=== PATIENT | female | born 1935 | race Hispanic/Latino ===

== ENCOUNTER 2018-01-09 18:02 | Emergency (ER) | payer MEDICARE ==
[2018-01-09 18:03] VITALS: BMI 36.3
[2018-01-09 18:30] VITALS: RESP 16; TEMP 98.4
--- NOTE | 2018-01-09 19:02 | ED PDOC ---
Arrival/HPI - General Chief Complaint: Trauma Time Seen by Provider: 01/09/18 18:36 Historian: Patient - History of Present Illness Narrative History of Present Illness (Text): 01/09/18 18:58 82yo female with PMHx of hyperlipdemia, hypertension and hypothyroid who present with complaint of right knee/arm and forehead pain s/p trauma. She notes that her foot was stuck on a stool, while at home ambulating with her walker and fell, landing on top of her furniture at home at 1600. She notes that she hit her head on the furniture. She denies LOC, Focal weakness, dizziness, nausea, vomiting, visual changes, any other complaint. Past Medical History - Provider Review Nursing Documentation Reviewed: Yes - Tetanus Immunization Tetanus Immunization: Unknown - Cardiac Hx Cardiac Disorders: Yes Hx Hypertension: Yes - Pulmonary Hx Respiratory Disorders: Yes Hx Chronic Obstructive Pulmonary Disease (COPD): Yes - Neurological Hx Neurological Disorder: Yes Hx Alzheimer's Disease: No HX Cerebrovascular Accident: No Hx Dementia: No Hx Dizziness: Yes Hx Meningitis: No Hx Migraine: No Hx Parkinson's Disease: No Hx Seizures: No Hx Transient Ischemic Attacks (TIA): Yes - HEENT Hx HEENT Disorder: Yes Hx Cataracts: Yes - Renal Hx Renal Disorder: No - Endocrine/Metabolic Hx Endocrine Disorders: Yes Hx Hypothyroidism: Yes - Hematological/Oncological Hx Blood Disorders: No Hx Blood Transfusions: No Hx Blood Transfusion Reaction: No - Integumentary Hx Dermatological Disorder: No - Musculoskeletal/Rheumatological Hx Musculoskeletal Disorders: Yes Hx Arthritis: Yes Hx Falls: Yes - Gastrointestinal Hx Gastrointestinal Disorders: Yes Hx Diverticulitis: Yes - Genitourinary/Gynecological Hx Genitourinary Disorders: No Hx Reproductive Disorders: No - Psychiatric Hx Psychophysiologic Disorder: Yes Hx Depression: Yes Hx Substance Use: No - Surgical History Hx Appendectomy: Yes Hx Cholecystectomy: Yes Hx Hysterectomy: Yes - Anesthesia Hx Anesthesia: Yes - Suicidal Assessment Feels Threatened In Home Enviroment: No Family/Social History - Physician Review Nursing Documentation Reviewed: Yes Family/Social History: Unknown Family HX Smoking Status: Never Smoked Hx Alcohol Use: No Hx Substance Use: No Hx Substance Use Treatment: No Allergies/Home Meds Allergies/Adverse Reactions: Allergies ampicillin Allergy (Verified 01/09/18 18:21) RASH Home Medications: Home Meds Medication Instructions Recorded Confirmed Atenolol 50 mg PO DAILY 06/24/13 01/09/18 Clopidogrel [Plavix] 75 mg PO DAILY 06/24/13 01/09/18 Furosemide [Lasix] 40 mg PO DAILY 06/24/13 01/09/18 Levothyroxine [Synthroid] 0.05 mg PO DAILY 06/24/13 01/09/18 Arformoterol [Brovana] 15 mcg NEB BID 12/03/14 01/09/18 Simvastatin [Simvastatin] 40 mg PO DAILY 10/01/16 01/09/18 Tiotropium [Spiriva] 18 mcg INH DAILY 10/01/16 01/09/18 Escitalopram [Lexapro] 20 mg PO BID 01/09/18 01/09/18 Review of Systems - Physician Review All systems were reviewed & negative as marked: Yes - Review of Systems Constitutional: Normal Eyes: Normal ENT: Normal Respiratory: Normal Cardiovascular: Normal Gastrointestinal: Normal Genitourinary Female: Normal Musculoskeletal: Arthralgias (Right arm/knee pain) Skin: Normal Neurological: Headache. absent: Dizziness, Focal Weakness, Gait Changes, Speech Changes, Facial Droop Endocrine: Normal Hemo/Lymphatic: Normal Psychiatric: Normal Physical Exam Vital Signs Reviewed: Yes Vital Signs Temp Pulse Resp BP Pulse Ox 01/09/18 21:00 65 16 110/69 96 01/09/18 18:29 98.4 F 61 16 107/65 95 Temperature: Afebrile Blood Pressure: Normal Pulse: Regular Respiratory Rate: Normal Appearance: Positive for: Well-Appearing, Non-Toxic, Comfortable Pain Distress: None Mental Status: Positive for: Alert and Oriented X 3 - Systems Exam Head: Present: Atraumatic, Normocephalic Pupils: Present: PERRL Extroacular Muscles: Present: EOMI, Other (right eyebrow noted with approximately 3 x 3cm hematoma with overlaying ecchymosis. Tender to palpate) Conjunctiva: Present: Normal Mouth: Present: Moist Mucous Membranes Neck: Present: Normal Range of Motion Respiratory/Chest: Present: Clear to Auscultation, Good Air Exchange. No: Respiratory Distress, Accessory Muscle Use Cardiovascular: Present: Regular Rate and Rhythm, Normal S1, S2. No: Murmurs Abdomen: Present: Normal Bowel Sounds. No: Tenderness, Distention, Peritoneal Signs Back: Present: Normal Inspection Upper Extremity: Present: Normal ROM, Neurovascularly Intact, Other ( Superficial abrasions/excoriations ntoed on right mid dorsal forearm). No: Cyanosis, Edema, Tenderness, Swelling, Erythema (Ecchymosis of upper lateral right upper arm noted) Lower Extremity: Present: NORMAL PULSES, Normal ROM, Tenderness (Right mid anterior knee), Swelling (Right knee), Neurovascularly Intact, Other (Old healed surgical scar noted). No: Edema, Erythema Neurological: Present: GCS=15, CN II-XII Intact, Speech Normal Skin: Present: Warm, Dry, Normal Color. No: Rashes Psychiatric: Present: Alert, Oriented x 3, Normal Insight, Normal Concentration Medical Decision Making ED Course and Treatment: 01/09/18 21:[address] Negative [address] CT - Negative Right knee xray - Negative fracture Right arm xray - Negative Result was DW the pt and the family Her pain was controlled in ED with medication. She was ambulatory and neurologically intact. she will be DC home and advised to apply cold compress to swelling. Referred to her PMD. TRT ED for any new or worsening symptoms. - RAD Interpretation Radiology Orders: 01/09/18 18:42 HEAD W/O CONTRAST [CT] Stat 01/09/18 18:43 MAXILLOFACIAL W/O CONTRAST [CT] Stat KNEE W PATELLA RIGHT 3 VIEW [RAD] Stat 01/09/18 18:44 FOREARM RIGHT [RAD] Stat HUMERUS RIGHT [RAD] Stat - Medication Orders Current Medication Orders: Discontinued Medications Tramadol HCl (Ultram) 50 mg PO STAT STA Stop: 01/09/18 18:46 Last Admin: 01/09/18 18:51 Dose: 50 mg [facility] Pain Assessment Document 01/09/18 18:51 [email or web address] (Rec: 01/09/18 18:51 [email or web address] [facility] [id number] Pain Reassessment Is this a pain reassessment? No Sleep Is patient sleeping during reassessment? No Presence of Pain Presence of Pain Yes Pain Scale Used Pain Scale Used Numeric Location Pain Location Body Site Generalized Description Description Constant Intensity of Pain at present 8 Pain Behavior Facial Grimacing Aggravating Factors Changing Position Alleviating Factors/Management Position Change Techniques Alleviating Factors Medication Disposition/Present on Arrival - Present on Arrival Any Indicators Present on Arrival: No History of DVT/PE: No History of Uncontrolled Diabetes: No Urinary Catheter: No History of Decub. Ulcer: No History Surgical Site Infection Following: Orthopedic Procedures - Disposition Have Diagnosis and Disposition been Completed?: Yes Diagnosis: Contusion of orbit, Head injury, Facial contusion, Arm pain Disposition: HOME/ ROUTINE Disposition Time: 21:15 Patient Plan: Discharge Patient Problems: Current Active Problems Problem Status Onset Contusion of orbit Acute Facial contusion Acute Head injury Acute Condition: STABLE Discharge Instructions (ExitCare): Head Injury (ED), Facial Contusion (ED) Additional Instructions: Apply ice to area Follow up with your doctor Return to ED for any new or worsening symptoms Prescriptions: traMADol [Ultram] 50 mg PO Q6 #9 tab Referrals: Delmer Larson MD [Primary Care Provider] - Follow up with primary Forms: [employer] (Bulgarian)
--- NOTE | 2018-01-09 20:44 | CT ---
EXAM: CT Head Without Intravenous Contrast CLINICAL HISTORY: 82 years old, female; Injury or trauma; Fall; Initial encounter; Blunt trauma (contusions or hematomas); Consciousness not specified; Additional info: S/P trauma TECHNIQUE: Axial computed tomography images of the head/brain without intravenous contrast. All CT scans at this facility use one or more dose reduction techniques, viz.: automated exposure control; ma/kV adjustment per patient size (including targeted exams where dose is matched to indication; i.e. head); or iterative reconstruction technique. Coronal and sagittal reformatted images were created and reviewed. COMPARISON: No relevant prior studies available. FINDINGS: Brain: [id number] atrophy. No intracranial hemorrhage. No mass. Few scattered foci of decreased attenuation within periventricular/subcortical white matter. 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 No edema. Ventricles: No hydrocephalus. Bones/joints: No calvarial fracture. Vasculature: Atherosclerotic disease of intracranial arteries. Mastoid air cells: No mastoid effusion. IMPRESSION: 1. No intracranial hemorrhage. 2. Nonspecific white matter changes. 3. See facial bone CT report for additional details. 4. Incidental/non-acute findings are described above.
--- NOTE | 2018-01-09 20:47 | CT ---
EXAM: CT Maxillofacial Without Intravenous Contrast CLINICAL HISTORY: 82 years old, female; Injury or trauma; Fall; Initial encounter; Blunt trauma (contusions or hematomas); Orbit/periorbital; Bilateral; Additional info: Right eyebrow swelling/pain S/P trauma TECHNIQUE: Axial computed tomography images of the face without intravenous contrast. All CT scans at this facility use one or more dose reduction techniques, viz.: automated exposure control; ma/kV adjustment per patient size (including targeted exams where dose is matched to indication; i.e. head); or iterative reconstruction technique. Coronal and sagittal reformatted images were created and reviewed. COMPARISON: No relevant prior studies available. FINDINGS: Bones/joints: Degenerative changes of temporomandibular joints. Degenerative changes of cervical spine. No acute fracture. Soft tissues: RIGHT periorbital soft tissue swelling. Orbits: Unremarkable as visualized. Sinuses: Scattered minimal to mild mucosal thickening. No air-fluid levels. IMPRESSION: 1. No fracture. 2. Incidental/non-acute findings are described above.
[2018-01-09 21:01] VITALS: BP 110/69; PULSE 65; O2SAT 96
--- NOTE | 2018-01-10 08:26 | RAD ---
PROCEDURE: Radiographs of the Right Forearm HISTORY: arm pain s/p trauma COMPARISON: None available. TECHNIQUE: Frontal and lateral views obtained. FINDINGS: BONES: No fracture or destructive lesion. Diffuse osteopenia suggests an element of osteoporosis JOINT SPACES: Unremarkable. OTHER FINDINGS: None. IMPRESSION: No acute fracture or dislocation identified. Diffuse osteopenia suggests an element of osteoporosis.
--- NOTE | 2018-01-10 08:27 | RAD ---
PROCEDURE: Radiographs of the right humerus. HISTORY: arm pain s/p trauma COMPARISON: None. FINDINGS: BONES: No acute fracture or destructive bony lesion identified.Diffuse osteopenia suggests an element of osteoporosis. SOFT TISSUES: Normal. OTHER FINDINGS: None. IMPRESSION: No acute fracture or dislocation identified right humerus. Diffuse osteopenia appears mild suggesting an element of osteoporosis.
--- NOTE | 2018-01-10 08:29 | RAD ---
PROCEDURE: Right Knee Radiographs. HISTORY: knee pain s/p trauma COMPARISON: Portable right knee radiographs 04/07/2015. FINDINGS: BONES: Prior right total knee replacement hardware appears grossly unchanged in position in overall appearance. No acute fracture, subluxation or dislocation is appreciable. JOINTS: As per above. JOINT EFFUSION: No significant joint effusion appreciable. OTHER FINDINGS: Mildly prominent prepatellar soft tissue edema identified. Vascular calcifications seen in the popliteal fossa and posterior to the tibia and fibula. IMPRESSION: Stable appearance of right total knee replacement hardware compare to 04/07/2015 radiographs. No acute fracture or dislocation appreciable. Mildly prominent prepatellar soft tissue edema identified.
== END 2018-01-09 21:36 | disposition home or self-care (01) ==
LOC: ED 18:02
DX: S05.11XA Contusion of eyeball and orbital tissues, right eye, initial encounter (principal); W01.190A Fall on same level from slipping, tripping and stumbling with subsequent striking against furniture, initial encounter; Y92.009 Unspecified place in unspecified non-institutional (private) residence as the place of occurrence of the external cause; M79.601 Pain in right arm

== ENCOUNTER 2018-03-24 13:38 | Inpatient (IN) | payer MEDICARE ==
[2018-03-24 13:38] VITALS: BMI 36.3
[2018-03-24] MEDS ORDERED: Sodium Chloride 0.9% 500 ML IV STA (14:52)
[2018-03-24] MEDS ORDERED: Morphine 4 mg/ml ISec IVP STA (14:52)
--- NOTE | 2018-03-24 15:06 | ED PDOC ---
Arrival/HPI - General Chief Complaint: Abdominal Pain Time Seen by Provider: 03/24/18 14:52 Historian: Patient, Family - History of Present Illness Narrative History of Present Illness (Text): 03/24/18 14:55 Pt p/w + 2 days onset of intermittent epigastric pain, non-radiating; pt states pain is severe at 10/10; pt states she ate some rice/quinow 3 days ago, the next day pt started with severe epigastric pain, and yesterday pt had 3-4 episodes of explosive diarrhea; pt states her appetite is decr, and she is afraid to eat; pt state + nausea and 1 episode of vomiting; pt states no fever/ chills/sweats, no cp/sob/palpitations, no urinary changes; pt today felt very dizzy/lightheaded, NO LOC; pt + general headache, pt states no neck pain, no vision changes, no rashes, no fall/trauma/sick contact, no travel; pt is here for further eval; pt denied other complaints. PCP: Dr Larson GI - none surgery: Dr Pineda pt s/p vishy/fabio pt has not had colonoscopy/endoscopy Time/Duration: < week (3 days) Symptom Onset: Sudden Symptom Course: Intermittent Quality: Tightness, Stabbing Severity Level: 10, Severe Activities at Onset: Rest Context: Home Past Medical History - Provider Review Nursing Documentation Reviewed: Yes - Travel History Have you recently traveled outside [place] w/in the past 3 mons?: No - Past History Past History: No Previous - Infectious Disease Hx of Infectious Diseases: None - Tetanus Immunization Tetanus Immunization: Unknown - Reproductive Menopause: Yes Currently : No - Cardiac Hx Cardiac Disorders: Yes Hx Hypertension: Yes - Pulmonary Hx Respiratory Disorders: Yes Hx Chronic Obstructive Pulmonary Disease (COPD): Yes - Neurological Hx Neurological Disorder: Yes Hx Alzheimer's Disease: No HX Cerebrovascular Accident: No Hx Dementia: No Hx Dizziness: Yes Hx Meningitis: No Hx Migraine: No Hx Parkinson's Disease: No Hx Seizures: No Hx Transient Ischemic Attacks (TIA): Yes - HEENT Hx HEENT Disorder: Yes Hx Cataracts: Yes - Renal Hx Renal Disorder: No - Endocrine/Metabolic Hx Endocrine Disorders: Yes Hx Hypothyroidism: Yes - Hematological/Oncological Hx Blood Disorders: No Hx Blood Transfusions: No Hx Blood Transfusion Reaction: No - Integumentary Hx Dermatological Disorder: No - Musculoskeletal/Rheumatological Hx Musculoskeletal Disorders: Yes Hx Arthritis: Yes Hx Falls: Yes - Gastrointestinal Hx Gastrointestinal Disorders: Yes Hx Diverticulitis: Yes - Genitourinary/Gynecological Hx Genitourinary Disorders: No Hx Reproductive Disorders: No - Psychiatric Hx Psychophysiologic Disorder: Yes Hx Depression: Yes Hx Substance Use: No - Surgical History Hx Appendectomy: Yes Hx Cholecystectomy: Yes Hx Hysterectomy: Yes - Anesthesia Hx Anesthesia: Yes Hx Anesthesia Reactions: No Hx Malignant Hyperthermia: No - Suicidal Assessment Feels Threatened In Home Enviroment: No Family/Social History - Physician Review Nursing Documentation Reviewed: Yes Family/Social History: No Known Family HX Smoking Status: Never Smoked Hx Alcohol Use: No Hx Substance Use: No Hx Substance Use Treatment: No Allergies/Home Meds Allergies/Adverse Reactions: Allergies ampicillin Allergy (Verified 03/24/18 14:21) RASH Home Medications: Home Meds Medication Instructions Recorded Confirmed Atenolol 50 mg PO DAILY 06/24/13 03/24/18 Clopidogrel [Plavix] 75 mg PO DAILY 06/24/13 03/24/18 Furosemide [Lasix] 40 mg PO DAILY 06/24/13 03/24/18 Levothyroxine [Synthroid] 50 mcg PO DAILY 06/24/13 03/24/18 Arformoterol [Brovana] 15 mcg NEB BID 12/03/14 03/24/18 Simvastatin [Simvastatin] 40 mg PO DAILY 10/01/16 03/24/18 Tiotropium [Spiriva] 2.5 mcg INH DAILY 10/01/16 03/24/18 Escitalopram [Lexapro] 20 mg PO DAILY 01/09/18 03/24/18 Review of Systems - Review of Systems Constitutional: Fatigue Eyes: Normal ENT: Normal Respiratory: Normal. absent: SOB, Cough Cardiovascular: Normal. absent: Chest Pain Gastrointestinal: Abdominal Pain, Stool Changes, Diarrhea, Nausea, Vomiting Genitourinary Female: Normal Musculoskeletal: Normal Skin: Normal Neurological: Dizziness. absent: Headache Endocrine: Normal Hemo/Lymphatic: Normal Psychiatric: Normal Physical Exam Vital Signs Reviewed: Yes Vital Signs Temp Pulse Resp BP Pulse Ox 03/24/18 20:04 73 18 139/62 96 03/24/18 18:16 81 18 131/79 99 03/24/18 15:48 89 18 133/86 98 04/28/18 14:19 98.1 F 03/24/18 13:38 95 H 19 135/92 H 96 Temperature: Afebrile Blood Pressure: Normal Pulse: Regular Respiratory Rate: Normal Appearance: Positive for: Well-Appearing, Non-Toxic, Uncomfortable, Other ( resting in bed, alert/awake, GCS = 15, oriented x 3, uncomfortable, NAD, cooperative) Pain Distress: None Mental Status: Positive for: Alert and Oriented X 3 - Systems Exam Head: Present: Atraumatic, Normocephalic Pupils: Present: PERRL, Other (visual field intact b/l, no photophobia, sclera anicteric, no nystagmus) Extroacular Muscles: Present: EOMI Conjunctiva: Present: Normal Ears: Present: Normal Mouth: Present: Moist Mucous Membranes, Normal Teeth, Other (uvula/tongue are midline, no exudate/lesions) Pharnyx: Present: Normal, Other Nose (External): Present: Atraumatic Nose (Internal): Present: Normal Inspection Neck: Present: Normal Range of Motion, Trachea Midline, Other (intact ROM, no midline tenderness). No: Meningeal Signs, MIDLINE TENDERNESS, Paraspinal Tenderness Respiratory/Chest: Present: Clear to Auscultation, Good Air Exchange, Other ( CTA b/l, no w/r/r, no accessory muscle use noted, no tachypenia). No: Respiratory Distress, Accessory Muscle Use Cardiovascular: Present: Regular Rate and Rhythm, Normal S1, S2. No: Murmurs Abdomen: Present: Tenderness (mid abd tenderness, no hoover's sign, no mcburney' s point tenderness, no masses/rebound/guarding/rigidity), Normal Bowel Sounds, Other (well nourished/obese female). No: Peritoneal Signs, Rebound, Guarding, McBurney's Point Tender, Rovsing's Sign Present Back: Present: Normal Inspection. No: CVA Tenderness, Midline Tenderness, Paraspinal Tenderness Upper Extremity: Present: Normal Inspection, Normal ROM, NORMAL PULSES, Neurovascularly Intact, Capillary Refill < 2s Lower Extremity: Present: Normal Inspection, NORMAL PULSES, Normal ROM, Neurovascularly Intact, Capillary Refill < 2 s, Other (intact ROM) Neurological: Present: GCS=15, CN II-XII Intact, Speech Normal Skin: Present: Warm, Normal Color, Other (cap refill < 1sec, no ulcerations, no petechiae, no rashes). No: Dry, Rashes Psychiatric: Present: Alert, Oriented x 3 Medical Decision Making ED Course and Treatment: 03/24/18 15:14 Impression: abd pain, N/V/D i have consider all the differential diagnosis regarding pt's chief medical complaints/clinical findings, including but are not limited to: abd pain, n/v/d A/P: abd pain, n/v/d - labs - iv - ct - ua - supportive care - observe/reevaluation 03/24/18 15:57 pt is feeling improved, currently pain free and no more nausea pt is awaiting CT results 03/24/18 19:51 pt remained comfortable currently, no gross pain, no vomiting, no persistent nausea pt/family are made aware of pt's medical results agrees with admission Paging Surg resident and Dr Morris 03/24/18 19:54 I spoke to surg resident, made aware, will see patient 03/24/18 20:[address] Morris, made aware, agrees with admission Re-evaluation Time: 15:57 Reassessment Condition: Improved - Lab Interpretations Lab Results: 03/24/18 15:10 03/24/18 15:10 Lab Results 03/24/18 15:10: pO2 33, VBG pH 7.34, VBG pCO2 57.0, VBG HCO3 30.8 H, VBG Total CO2 32.5 H, VBG O2 Sat (Calc) 70.7 H, VBG Base Excess 3.5 H, VBG Potassium 3.9, Sodium 138.0, Chloride 104.0, Glucose 103, Lactate 0.9, FiO2 21.0, Venous Blood Potassium 3.9 03/24/18 15:10: Sodium 142, Chloride 102, Potassium 3.9, Carbon Dioxide 30, Anion Gap 14, BUN 16, Creatinine 0.7, Est GFR ( Amer) > 60, Est GFR (Non- Af Amer) > 60, Random Glucose 99, Calcium 9.4, Total Bilirubin 0.8, AST 26, ALT 20, Alkaline Phosphatase 55, Total Protein 6.8, Albumin 3.9, Globulin 2.9, Albumin/Globulin Ratio 1.4, Lipase 48 03/24/18 15:10: PT 11.7, INR 1.03, APTT 27.4 03/24/18 15:10: WBC 6.7 D, RBC 4.20, Hgb 12.5, Hct 38.5, MCV 91.7, MCH 29.8, MCHC 32.5, RDW 14.6 H, Plt Count 171, MPV 10.4, Gran % 68.7 H, Lymph % (Auto) 19.9 L, Donley % (Auto) 8.4 H, Eos % (Auto) 2.7, Baso % (Auto) 0.3, Gran # 4.60, Lymph # (Auto) 1.3, Donley # (Auto) 0.6, Eos # (Auto) 0.2, Baso # (Auto) 0.02 I have reviewed the lab results: Yes Interpretation: All labs normal - RAD Interpretation Narrative RAD Interpretations (Text): 03/24/18 19:36 CT Abd and Pelvis reviewed, shows: LIMITATIONS: Mild streak/motion artifact. LUNG BASES: No significant abnormality seen. ABDOMEN: LIVER: Hepatomegaly, with the liver measuring 23 cm in length on the coronal images. GALLBLADDER AND BILE DUCTS: Diffuse biliary ductal dilatation, involving the intrahepatic and extrahepatic bile ducts, with the common bile duct measuring up to 1.2 cm in diameter. Cholecystectomy clips. No radiopaque common bile duct stones are visualized. PANCREAS: Pancreatic duct is seen, however, does not appear abnormally dilated. No CT evidence of acute pancreatitis. SPLEEN: No acute abnormality of the spleen identified. ADRENALS: No acute abnormality of the adrenal glands identified. KIDNEYS AND URETERS: Low density lesions in the right kidney, most likely representing cysts. The largest of these measures 1.6 cm. STOMACH AND BOWEL: Mild small bowel dilatation. There are multiple mildly dilated distal small bowel loops in the pelvis. There may be a transition point in the distal small bowel, images 47-50 of series 601, where there is a change in caliber of the small bowel, followed by multiple normal caliber distal small bowel loops. There is mild wall thickening of the small bowel at the transition point. Findings could represent either an ileus or a partial distal small bowel obstruction, due to mild enteritis. Extensive colonic diverticulosis, without evidence of acute diverticulitis. Duodenal diverticulum noted. Otherwise, no significant abnormality of the bowel is identified. No acute abnormality of the stomach is identified. PELVIS: APPENDIX: Normal appendix is not seen, and there are postsurgical changes near the cecum, which may be from prior appendectomy. BLADDER: Mild bladder diverticulosis. Findings could be secondary to chronic bladder outlet obstruction. REPRODUCTIVE: Uterus is surgically absent. No evidence of large adnexal masses. ABDOMEN and PELVIS: INTRAPERITONEAL SPACE: Small amount of free fluid in the pelvis. This is an abnormal finding in a postmenopausal patient. No evidence of free air. BONES/JOINTS: No acute fractures or other acute bony abnormality noted. SOFT TISSUES: No acute abnormality of the visualized soft tissues is seen. VASCULATURE: No evidence of abdominal aortic aneurysm. No evidence of periaortic hemorrhage. LYMPH NODES: No evidence of diffuse lymphadenopathy. IMPRESSION: - Small bowel dilatation. This could be due to either an ileus versus a partial small bowel obstruction due to mild enteritis. Recommend clinical correlation. - Diffuse biliary ductal dilatation, involving the intrahepatic and extrahepatic bile ducts. This may be secondary to the patient's age and the postcholecystectomy state. Recommend correlation with LFTs for laboratory evidence of biliary obstruction. - Small amount of free fluid in the pelvis. - Otherwise, no evidence of significant acute process. - Bladder diverticulosis. - See above for remaining findings. Radiology Orders: 03/24/18 14:53 ABD & PELVIS IV CONTRAST ONLY [CT] Stat CHEST TWO VIEWS (PA/LAT) [RAD] Stat Manager Of [employer]: Radiologist - EKG Interpretation EKG Interpretation (Text): 03/24/18 15:58 NSR at 80 bpm, normal axis, no ectopy, mild voltage criteria LVH, non-specific st changes, ABNL EKG; unchanged compare with old ekg 02/2015 Interpreted by ED Physician: Yes Type: 12 lead EKG Comparison: Similar to previous EKG - Medication Orders Current Medication Orders: Dextrose/Sodium Chloride (Dextrose 5%/0.45% Ns 1000 Ml) 1,000 mls @ 75 mls/hr IV .[id number] Last Admin: 03/24/18 19:59 Dose: 75 mls/hr eMAR Start Stop Document 03/24/18 19:59 RD (Rec: 03/24/18 19:59 RD [id number]) Intravenous Solution Start Date 03/24/18 Start Time 19:59 Discontinued Medications Famotidine (Pepcid) 20 mg IVP STAT STA Stop: 03/24/18 14:53 Last Admin: 03/24/18 15:21 Dose: 20 mg IVP Administration Document 03/24/18 15:21 RD (Rec: 03/24/18 15:21 RD [id number]) Charges for Administration # of IVP Administrations 1 Sodium Chloride (Sodium Chloride 0.9%) 500 mls @ 1,000 mls/hr IV .Q30M STA Stop: 03/24/18 15:21 Last Admin: 03/24/18 15:15 Dose: 1,000 mls/hr eMAR Start Stop Document 03/24/18 15:15 RD (Rec: 03/24/18 15:21 RD [id number]) Intravenous Solution Start Date 03/24/18 Start Time 15:15 End Date 03/24/18 End time 15:45 Total Infusion Time 30 Morphine Sulfate (Morphine) 4 mg IVP STAT STA Stop: 03/24/18 14:53 Last Admin: 03/24/18 15:26 Dose: 4 mg MAR Pain Assessment Document 03/24/18 15:26 RD (Rec: 03/24/18 15:26 RD [id number]) Pain Reassessment Is this a pain reassessment? No Sleep Is patient sleeping during reassessment? No Presence of Pain Presence of Pain Yes Pain Scale Used Pain Scale Used Numeric Location Upper or Lower Upper Pain Location Body Site Abdomen IVP Administration Document 03/24/18 15:26 RD (Rec: 03/24/18 15:26 RD [id number]) Charges for Administration # of IVP Administrations 1 Ondansetron HCl (Zofran Inj) 4 mg IVP STAT STA Stop: 03/24/18 14:53 Last Admin: 03/24/18 15:22 Dose: 4 mg IVP Administration Document 03/24/18 15:22 RD (Rec: 03/24/18 15:22 RD [id number]) Charges for Administration # of IVP Administrations 1 - Scribe Statement The provider has reviewed the documentation as recorded by the Scribfausto Healy All medical record entries made by the Scribe were at my direction and personally dictated by me. I have reviewed the chart and agree that the record accurately reflects my personal performance of the history, physical exam, medical decision making, and the department course for this patient. I have also personally directed, reviewed, and agree with the discharge instructions and disposition. Disposition/Present on Arrival - Present on Arrival Any Indicators Present on Arrival: No History of DVT/PE: No History of Uncontrolled Diabetes: No Urinary Catheter: No History of Decub. Ulcer: No History Surgical Site Infection Following: Orthopedic Procedures - Disposition Have Diagnosis and Disposition been Completed?: Yes Diagnosis: Partial small bowel obstruction, Dehydration Disposition: HOSPITALIZED Disposition Time: 19:54 Patient Plan: Admission Patient Problems: Current Active Problems Problem Status Onset Partial small bowel obstruction Acute Dehydration Acute Condition: STABLE Print Language: MAURITIAN Referrals: Delmer Larson MD [Primary Care Provider] - Follow up with primary Forms: [employer] ([place])
[2018-03-24 15:24] LABS: BASO # 0.02 K/mm3 (0.0-2.0); BASO % 0.3 % (0.0-3.0); EOS # 0.2 (0.0-0.7); EOS % 2.7 % (1.5-5.0); GRAN # 4.6 (1.4-6.5); GRAN % 68.7 % (50.0-68.0); HEMOGLOBIN 12.5 g/dL (12.0-16.0); LYMPH # 1.3 (1.2-3.4); LYMPH % 19.9 % (22.0-35.0); MEAN CELL VOLUME 91.7 fl (80.0-105.0); MEAN CORPUSCULAR HEMOGLOBIN 29.8 pg (25.0-35.0); MEAN CORPUSCULAR HGB CONC 32.5 g/dl (31.0-37.0); MEAN PLATELET VOLUME 10.4 fl (7.0-11.0); MONO # 0.6 (0.1-0.6); MONO % 8.4 % (1.0-6.0); RBC 4.2 10^6/uL (3.5-6.1); RED CELL DISTRIBUTION WIDTH 14.6 % (11.5-14.5); WHITE BLOOD COUNT 6.7 10^3/ul (4.5-11.0)
[2018-03-24 15:34] LABS: VENOUS BLOOD GAS BASE EXCESS 3.5 mmol/L (0.0-2.0); VENOUS BLOOD GAS PO2 33 mm/Hg (30-55); VENOUS BLOOD PH 7.34 (7.32-7.43)
[2018-03-24 15:37] LABS: INR 1.03 (0.93-1.08); PARTIAL THROMBOPLASTIN TIME 27.4 Seconds (25.1-36.5); PROTHROMBIN TIME 11.7 SECONDS (9.4-12.5)
[2018-03-24 15:40] LABS: ALB/GLOB RATIO 1.4 (1.1-1.8); ALBUMIN 3.9 g/dL (3.0-4.8); ALT/SGPT 20 U/L (7-56); AST/SGOT 26 U/L (14-36); BLOOD UREA NITROGEN 16 mg/dL (7-21); CALCIUM 9.4 mg/dL (8.4-10.5); GFR AFRICAN-AMERICAN > 60; GFR NON-AFRICAN AMERICAN > 60; LIPASE 48 U/L (23-300)
--- NOTE | 2018-03-24 19:31 | CT ---
EXAM: CT Abdomen and Pelvis With Intravenous Contrast EXAM DATE/TIME: 03/24/2018 2:53 PM CLINICAL HISTORY: 82 years old, female; Pain; Abdominal pain; Epigastric; Additional info: Severe epigastric/abd pain; N/v/d; HX of choley. Estimated image count TECHNIQUE: Axial computed tomography images of the abdomen and pelvis with intravenous contrast. All CT scans at this facility use one or more dose reduction techniques, viz.: automated exposure control; ma/kV adjustment per patient size (including targeted exams where dose is matched to indication; i.e. head); or iterative reconstruction technique. Coronal and sagittal reformatted images were created and reviewed. CONTRAST: 100 mL of OMNI 350 administered intravenously. COMPARISON: No relevant prior studies available. FINDINGS: LIMITATIONS: Mild streak/motion artifact. LUNG BASES: No significant abnormality seen. ABDOMEN: LIVER: Hepatomegaly, with the liver measuring 23 cm in length on the coronal images. GALLBLADDER AND BILE DUCTS: Diffuse biliary ductal dilatation, involving the intrahepatic and extrahepatic bile ducts, with the common bile duct measuring up to 1.2 cm in diameter. Cholecystectomy clips. No radiopaque common bile duct stones are visualized. PANCREAS: Pancreatic duct is seen, however, does not appear abnormally dilated. No CT evidence of acute pancreatitis. SPLEEN: No acute abnormality of the spleen identified. ADRENALS: No acute abnormality of the adrenal glands identified. KIDNEYS AND URETERS: Low density lesions in the right kidney, most likely representing cysts. The largest of these measures 1.6 cm. STOMACH AND BOWEL: Mild small bowel dilatation. There are multiple mildly dilated distal small bowel loops in the pelvis. There may be a transition point in the distal small bowel, images 47-50 of series 601, where there is a change in caliber of the small bowel, followed by multiple normal caliber distal small bowel loops. There is mild wall thickening of the small bowel at the transition point. Findings could represent either an ileus or a partial distal small bowel obstruction, due to mild enteritis. Extensive colonic diverticulosis, without evidence of acute diverticulitis. Duodenal diverticulum noted. Otherwise, no significant abnormality of the bowel is identified. No acute abnormality of the stomach is identified. PELVIS: APPENDIX: Normal appendix is not seen, and there are postsurgical changes near the cecum, which may be from prior appendectomy. BLADDER: Mild bladder diverticulosis. Findings could be secondary to chronic bladder outlet obstruction. REPRODUCTIVE: Uterus is surgically absent. No evidence of large adnexal masses. ABDOMEN and PELVIS: INTRAPERITONEAL SPACE: Small amount of free fluid in the pelvis. This is an abnormal finding in a postmenopausal patient. No evidence of free air. BONES/JOINTS: No acute fractures or other acute bony abnormality noted. SOFT TISSUES: No acute abnormality of the visualized soft tissues is seen. VASCULATURE: No evidence of abdominal aortic aneurysm. No evidence of periaortic hemorrhage. LYMPH NODES: No evidence of diffuse lymphadenopathy. IMPRESSION: - Small bowel dilatation. This could be due to either an ileus versus a partial small bowel obstruction due to mild enteritis. Recommend clinical correlation. - Diffuse biliary ductal dilatation, involving the intrahepatic and extrahepatic bile ducts. This may be secondary to the patient's age and the postcholecystectomy state. Recommend correlation with LFTs for laboratory evidence of biliary obstruction. - Small amount of free fluid in the pelvis. - Otherwise, no evidence of significant acute process. - Bladder diverticulosis. - See above for remaining findings.
[2018-03-24] MEDS ORDERED: Dextrose 5%/0.45% NS 1,000 ML IV SCH (20:00)
--- NOTE | 2018-03-24 20:21 | CP.PCM.CON ---
History of Present Illness - History of Present Illness History of Present Illness: Surgery: Dr. Brown covering for Dr. Pineda CC: abd pain HPI: 82F w. pmh of COPD, HTN, hypothyroidism, TIA, anxiety, depression, presents to ED w. abd pain. Pt states that she had quinoa monday night. She states that starting she began to experience stabbing epigastric pain that was intermittent. The pain was accompanied by n/v and 3 episodes of extreme diarrhea, non-bloody. She states that the diarrhea resolved w. immodium , but she continued to have pain which prompted her to come to ED. In ED pt states that her pain has improved slightly. She states that she is starting to have an appetite. CT was done which showed partial sbo vs ileus vs enteritis for which surgery was consulted PMH: See above PSH: Hysterectomy, appendectomy, cholecystectomy, R breast lumpectomy, SBO, heart txp Meds: MAR reviewed ALL: ampicillin > rash Fhx: non-contributory Review of Systems - Review of Systems All systems: reviewed and no additional remarkable complaints except (HPI) Past Patient History - Infectious Disease Hx of Infectious Diseases: None - Tetanus Immunizations Tetanus Immunization: Unknown - Past Social History Smoking Status: Never Smoked - CARDIAC Hx Cardiac Disorders: Yes Hx Hypertension: Yes - PULMONARY Hx Respiratory Disorders: Yes Hx Chronic Obstructive Pulmonary Disease (COPD): Yes - NEUROLOGICAL Hx Neurological Disorder: Yes Hx Alzheimer's Disease: No HX Cerebrovascular Accident: No Hx Dementia: No Hx Dizziness: Yes Hx Meningitis: No Hx Migraine: No Hx Parkinson's Disease: No Hx Seizures: No Hx Transient Ischemic Attacks (TIA): Yes - HEENT Hx HEENT Problems: Yes Hx Cataracts: Yes - RENAL Hx Chronic Kidney Disease: No - ENDOCRINE/METABOLIC Hx Endocrine Disorders: Yes Hx Hypothyroidism: Yes - HEMATOLOGICAL/ONCOLOGICAL Hx Blood Disorders: No Hx Blood Transfusions: No Hx Blood Transfusion Reaction: No - INTEGUMENTARY Hx Dermatological Problems: No - MUSCULOSKELETAL/RHEUMATOLOGICAL Hx Musculoskeletal Disorders: Yes Hx Arthritis: Yes Hx Falls: Yes - GASTROINTESTINAL Hx Gastrointestinal Disorders: Yes Hx Diverticulitis: Yes - GENITOURINARY/GYNECOLOGICAL Hx Genitourinary Disorders: No Hx Reproductive Disorders: No - PSYCHIATRIC Hx Psychophysiologic Disorder: Yes Hx Depression: Yes Hx Substance Use: No - SURGICAL HISTORY Hx Appendectomy: Yes Hx Cholecystectomy: Yes Hx Hysterectomy: Yes - ANESTHESIA Hx Anesthesia: Yes Hx Anesthesia Reactions: No Hx Malignant Hyperthermia: No Meds Allergies/Adverse Reactions: Allergies Allergy/AdvReac Type Severity Reaction Status Date / Time ampicillin Allergy RASH Verified 03/24/18 14:21 - Medications Medications: Current Medications Dextrose/Sodium Chloride (Dextrose 5%/0.45% Ns 1000 Ml) 1,000 mls @ 75 mls/hr IV .[id number] TOMEKA Last Admin: 03/24/18 19:59 Dose: 75 mls/hr Physical Exam - Constitutional Appears: Non-toxic, No Acute Distress - Head Exam Head Exam: ATRAUMATIC, NORMOCEPHALIC - Eye Exam Eye Exam: EOMI. absent: Scleral icterus - ENT Exam ENT Exam: Mucous Membranes Moist, Normal External Ear Exam - Neck Exam Neck exam: Positive for: Full Rom - Respiratory Exam Respiratory Exam: NORMAL BREATHING PATTERN. absent: Accessory Muscle Use, Respiratory Distress - Cardiovascular Exam Cardiovascular Exam: REGULAR RHYTHM - GI/Abdominal Exam GI & Abdominal Exam: Soft, Tenderness (epigastric). absent: Distended, Firm, Guarding, Rebound, Rigid - Extremities Exam Extremities exam: Negative for: calf tenderness, pedal edema - Neurological Exam Neurological exam: Alert, Oriented x3 - Psychiatric Exam Psychiatric exam: Normal Affect, Normal Mood Results - Vital Signs Recent Vital Signs: Last Vital Signs Temp 98.1 F 03/24/18 14:19 Pulse 73 03/24/18 20:04 Resp 18 03/24/18 20:04 BP 139/62 03/24/18 20:04 Pulse Ox 96 03/24/18 20:04 - Labs Result Diagrams: 03/24/18 15:10 03/24/18 15:10 Labs: Laboratory Results - last 24 hr 03/24/18 03/24/18 03/24/18 15:10 15:10 15:10 WBC 6.7 D RBC 4.20 Hgb 12.5 Hct 38.5 MCV 91.7 MCH 29.8 MCHC 32.5 RDW 14.6 H Plt Count 171 MPV 10.4 Gran % 68.7 H Lymph % (Auto) 19.9 L Winn % (Auto) 8.4 H Eos % (Auto) 2.7 Baso % (Auto) 0.3 Gran # 4.60 Lymph # (Auto) 1.3 Winn # (Auto) 0.6 Eos # (Auto) 0.2 Baso # (Auto) 0.02 PT 11.7 INR 1.03 APTT 27.4 pO2 VBG pH VBG pCO2 VBG HCO3 VBG Total CO2 VBG O2 Sat (Calc) VBG Base Excess VBG Potassium Sodium 142 Chloride 102 Glucose Lactate FiO2 Potassium 3.9 Carbon Dioxide 30 Anion Gap 14 BUN 16 Creatinine 0.7 Est GFR ( Amer) > 60 Est GFR (Non-Af Amer) > 60 Random Glucose 99 Calcium 9.4 Total Bilirubin 0.8 AST 26 ALT 20 Alkaline Phosphatase 55 Total Protein 6.8 Albumin 3.9 Globulin 2.9 Albumin/Globulin Ratio 1.4 Lipase 48 Venous Blood Potassium 03/24/18 15:10 WBC RBC Hgb Hct MCV MCH MCHC RDW Plt Count MPV Gran % Lymph % (Auto) Winn % (Auto) Eos % (Auto) Baso % (Auto) Gran # Lymph # (Auto) Winn # (Auto) Eos # (Auto) Baso # (Auto) PT INR APTT pO2 33 VBG pH 7.34 VBG pCO2 57.0 VBG HCO3 30.8 H VBG Total CO2 32.5 H VBG O2 Sat (Calc) 70.7 H VBG Base Excess 3.5 H VBG Potassium 3.9 Sodium 138.0 Chloride 104.0 Glucose 103 Lactate 0.9 FiO2 21.0 Potassium Carbon Dioxide Anion Gap BUN Creatinine Est GFR ( Amer) Est GFR (Non-Af Amer) Random Glucose Calcium Total Bilirubin AST ALT Alkaline Phosphatase Total Protein Albumin Globulin Albumin/Globulin Ratio Lipase Venous Blood Potassium 3.9 - Imaging and Cardiology CT scan - abdomen Status: Image reviewed by me, Report reviewed by me Assessment & Plan - Assessment and Plan (Free Text) Assessment: 82F w. abd pain, N/V/D, likely enteritis -IVF -CLD -will make NPO if sxs worsen -serial abd exams -anti-emetics -pain meds -d/w attending Zemaitis PGY3
[2018-03-24] MEDS ORDERED: HYDROmorphone 0.5 mg/0.5 ml ISec IVP PRN (20:30)
[2018-03-25 01:50] VITALS: RESP 20
[2018-03-25 05:22] LABS: URINE APPEARANCE CLEAR (CLEAR); URINE BILIRUBIN NEGATIVE (NEGATIVE); URINE BLOOD NEGATIVE (NEGATIVE); URINE COLOR AMBER (YELLOW); URINE GLUCOSE (UA) NEGATIVE (NEGATIVE); URINE LEUKOCYTE ESTERASE SMALL Leu/uL (NEGATIVE); URINE PROTEIN NEGATIVE mg/dL (<30 mg/dL)
[2018-03-25 05:23] LABS: URINE AMORPHOUS SEDIMENT TRACE
--- NOTE | 2018-03-25 07:27 | CP.PCM.PN ---
Subjective - Date & Time of Evaluation Date of Evaluation: 03/25/18 Time of Evaluation: 07:24 - Subjective Subjective: Surgery: Dr. Brown Pt seen and examined. Resting comfortably in bed. Pain resolved. Pt would like to eat. No N/V/D. Objective - Vital Signs/Intake and Output Vital Signs (last 24 hours): Temp Pulse Resp BP Pulse Ox 98.1 F 73 20 139/62 96 03/24/18 14:19 03/24/18 20:04 03/25/18 00:05 03/24/18 20:04 03/24/18 20:04 - Medications Medications: Current Medications Hydromorphone HCl (Dilaudid) 0.5 mg IVP Q4H PRN PRN Reason: Pain, moderate (4-7) Dextrose/Sodium Chloride (Dextrose 5%/0.45% Ns 1000 Ml) 1,000 mls @ 75 mls/hr IV .[id number] [id number] Last Admin: 03/24/18 19:59 Dose: 75 mls/hr Ondansetron HCl (Zofran Inj) 4 mg IVP Q4H PRN PRN Reason: Nausea/Vomiting - Labs Labs: PT 11.7 SECONDS (9.4-12.5) 03/24/18 15:10 INR 1.03 (0.93-1.08) 03/24/18 15:10 APTT 27.4 Seconds (25.1-36.5) 03/24/18 15:10 - Constitutional Appears: Non-toxic, No Acute Distress - Head Exam Head Exam: ATRAUMATIC, NORMOCEPHALIC - Eye Exam Eye Exam: EOMI - ENT Exam ENT Exam: Mucous Membranes Moist - Neck Exam Neck Exam: Full ROM - Respiratory Exam Respiratory Exam: NORMAL BREATHING PATTERN. absent: Accessory Muscle Use, Respiratory Distress - GI/Abdominal Exam GI & Abdominal Exam: Soft. absent: Distended, Firm, Guarding, Tenderness, Rebound - Extremities Exam Extremities Exam: absent: Calf Tenderness, Pedal Edema - Neurological Exam Neurological Exam: Alert, Awake, Oriented x3 Assessment and Plan - Assessment and Plan (Free Text) Assessment: 82F w. enteritis, sxs improved -will start Heart healthy diet -if diet tolerated clear for d/c from surgical standpoint -will d/w attending Zemaitis PGY3
--- NOTE | 2018-03-25 10:00 | RAD ---
HISTORY: epigastric pain COMPARISON: 04/05/2017 TECHNIQUE: Chest PA and lateral FINDINGS: LUNGS: There is mild diffuse increase in interstitial markings from prior study. There is poor expiratory effort when compared to the prior exam. No definite new focal alveolar infiltrate is clearly seen. PLEURA: No significant pleural effusion identified. No pneumothorax apparent. CARDIOVASCULAR: There is probable increased vascular congestion accounting for some of the new interstitial prominence. Heart is enlarged. Aorta is unchanged. OSSEOUS STRUCTURES: No change VISUALIZED UPPER ABDOMEN: Normal. OTHER FINDINGS: None. IMPRESSION: Interval development of prominent diffuse interstitial markings. This may reflect vascular congestion and CHF although superimposed infectious/ inflammatory process is not excluded.
[2018-03-25] MEDS: Levothyroxine 50 MCG TAB PO SCH (10:55)
--- NOTE | 2018-03-25 19:57 | HP ---
CHIEF COMPLAINT AND HISTORY OF PRESENT ILLNESS: This is an 82-year-old female who is coming in to the hospital complaining of abdominal pain. The patient states that she started having this discomfort two days prior to coming to the ER. She states the pain was mostly epigastric, was nonradiating, but the pain was severe, she rated as 10/10. The patient states that she had about four episodes of diarrhea. She did have nausea and one episode of vomiting. She states she is feeling much better. She is able to tolerate her diet this morning. She was seen by Surgery yesterday. She has no complaints of any chest pain, no fever or chills, no nausea, no vomiting this morning. REVIEW OF SYSTEMS: All other review of symptoms are within normal limits except as mentioned. PAST MEDICAL HISTORY: COPD, TIA, hypothyroidism, dyslipidemia, anxiety. PAST SURGICAL HISTORY: Cataracts. SOCIAL HISTORY: She denies smoking drugs. HOME MEDICATIONS: Have been reviewed on the [facility]. FAMILY HISTORY: Noncontributory. PHYSICAL EXAMINATION: VITAL SIGNS: Patient has a temperature of 98.1, pulse of 73, blood pressure is 139/62, respirations 18, O2 saturation 96%. Height is 5 feet 6 inches. Weight is 220 pounds. BMI is 35.5. GENERAL: The patient lying in bed, uncomfortable, and in no acute distress. HEENT: Atraumatic and normocephalic. Anicteric sclerae. Moist mucosa. [place] conjunctivae. No oral lesions. NECK: No JVD, anterior and posterior adenopathy, thyromegaly, or bruits. CARDIOVASCULAR: S1 and S2 regular. No murmur, rubs, or gallop. LUNGS: Clear to auscultation bilaterally. No wheezes, rales, or rhonchi. ABDOMEN: Bowel sounds are positive. Soft, nontender and nondistended. No hepatosplenomegaly. No rebound and no guarding EXTREMITIES: No cyanosis, clubbing, or edema. NEUROLOGIC: No facial asymmetry. Tongue is midline. No uvula deviation. Power is 5/5 upper extremity and lower extremity. Sensation intact in upper extremity and lower extremity. PSYCHIATRIC: She is awake, alert and oriented x3. No anxiety or depression. She has normal affect. GENITOURINARY: No CVA tenderness. VASCULAR: 2+ pulses in the carotid pulses and pedal pulses. SKIN: No erythema or nodules. SPINE: Shows normal curvature. LABORATORY DATA: Reviewed. White count of 6.7, hemoglobin 12.5. Chemistry shows a creatinine of 0.7. Urine shows ketones are negative, blood is negative, nitrites are negative. CT of the abdomen and pelvis done shows a small bowel dilation, there is diffuse biliary ductal dilatation. Chest x-ray shows no infiltrates. ASSESSMENT: 1. Ileus, improved. 2. Hypothyroidism. 3. Dyslipidemia. 4. Obesity with body mass index of 35. PLAN: The patient is currently comfortable. She had a chest x-ray that was normal. The patient is tolerating her diet. She is on IV fluids; I will discontinue that. She is on Zofran. The patient was seen by Surgery. I did speak to them. The patient is currently comfortable and will be discharged home today. She is able to ambulate. She was advised to come back to the hospital if symptoms get worse. Saul Morris MD
--- NOTE | 2018-03-25 22:48 | CARD ---
APPROVED REPORT EKG Measurement Heart [id number] VT [id number] <Conclusion> Normal sinus rhythm Moderate voltage criteria for LVH, may be normal variant Nonspecific ST abnormality Abnormal ECG
[2018-03-26 08:16] VITALS: BP 150/62; PULSE 61; TEMP 98; O2SAT 95
[2018-03-26] MEDS: Levothyroxine 50 MCG TAB PO SCH (09:22)
--- NOTE | 2018-03-26 16:06 | CON ---
DATE: 03/26/2018 HISTORY OF PRESENT ILLNESS: I saw Ms. Moralez this morning. She is an 82-year-old white female with past medical history of COPD, hypothyroidism, TIA, anxiety, admitted with complaints of abdominal pain, diarrhea. The pain started after eating a rice meal that she never had before. She relate that the pain was in the periumbilical area. There were several episodes of diarrhea before arriving at the hospital with nausea and vomiting. CT scan was done on arrival to the ER, which revealed hepatomegaly, diffuse biliary dilatation following intra and extrahepatic bile duct, and cholecystectomy clips. Pancreatic duct not seen, no evidence of pancreatitis. Of note, small bowel is dilated with multiple mildly dilated distal small bowel loops in the pelvis probably involving the jejunum and the ileum. Extensive chronic diverticulosis was noted. At the bedside this morning, the patient indicates there is no nausea, vomiting, or abdominal pain. She apparently had a meal with no difficulty, however, bowel movement is still on the abnormal side. The patient did not intake her full dinner last night as per recommendation of her nursing staff and myself. The patient feels well enough to go home today. PHYSICAL EXAMINATION: VITAL SIGNS: I reviewed this patient's vital signs. HEENT: Noncontributory. LUNGS: Clear to auscultation apical. Decreased breath sounds basilar. HEART: Irregular rhythm. ABDOMEN: Protuberant, soft, apparently was distended according to the patient. Bowel sounds are irregular. There is no epigastric tenderness. I reviewed the Surgery consultation, so as the appropriate x-ray data. LABORATORY DATA: Results are reviewed. Hematology as well as the INR and chemistries. Noted that the biliary parameters are all within normal limits. I discussed this case in detail with the nurses who indicate the patient's clinical course over the past couple of days. ASSESSMENT: This is an 82-year-old very challenged white female, admitted with complaints of abdominal pain, nausea, vomiting, diarrhea probably secondary to a gastroenteritis, probably food related. The patient feels well enough to go home today with absence of nausea, vomiting as well as abdominal pain. Her bowels are not normal as of yet; however, one would not expect this after an episode of gastroenteritis. Given her CT findings of extensive diverticulosis, I advised the patient to use significant diet excursion and also advance her diet slowly over the period of next couple of days. She was advised of diet choices especially in light of her extensive diverticulosis. The patient indicates the possibility of lactose intolerance which she discussed with her children in some detail. It was suggested that she may have a lactose intolerance to some degree and tro try Lactaid at home. This patient will be following up with Dr. Larson as an outpatient and if deemed necessary, it was suggested a GI consult of choice. Nick Garrison DO, PhD SUZETTE
--- NOTE | 2018-03-27 03:40 | DS ---
HISTORY OF PRESENT ILLNESS: This is an 82-year-old female who is coming into the hospital complaining of abdominal pain. The patient's abdominal pain has improved. The patient was seen by surgery and no intervention was needed. The patient had an ileus. She had diarrhea yesterday and that has improved as well. She is going to be discharged home today. I explained to the patient's daughter to give her an update on the patient's diagnosis and plan of care. The patient has no complaints of any headaches or dizziness. No nausea. No vomiting. She is able to tolerate her diet. PHYSICAL EXAMINATION: VITAL SIGNS: Temperature is 98, pulse of 61, blood pressure 150/62, respirations 20, O2 saturation 95%. GENERAL: The patient is lying in bed, flat, comfortable. HEENT: No oral lesion. Anicteric sclerae. Moist mucosa. NECK: No JVD, adenopathy, or thyromegaly. CARDIOVASCULAR: S1 and S2, regular. No murmurs, rubs, or gallops. LUNGS: Clear to auscultation bilaterally. No wheeze, rales, or rhonchi. ABDOMEN: Bowel sounds are positive, soft, nontender and nondistended. EXTREMITIES: No cyanosis, clubbing or edema. ASSESSMENT: 1. Ileus, improved. 2. Hypothyroidism. 3. Dyslipidemia. 4. Obesity with a body mass index of 35. PLAN: The patient is going to continue with her home medications. She is on Plavix. She is going to continue with Synthroid for hypothyroidism. She is on atenolol. CONDITION: Stable. ACTIVITIES: Increase as tolerated. FOLLOWUP: 1. Follow up with Dr. Garrison in 1 to 2 weeks. 2. Follow up with Dr. Larson in 1 to 2 weeks. Saul Morris MD
== END 2018-03-26 10:11 | disposition home or self-care (01) | DRG 390 ==
LOC: ED 13:38 → ERH 20:04 → 5RNO 20:38
PROVIDERS: ADMIT Internal Medicine Nephrology; ATTEND Internal Medicine Nephrology
DX: K56.7 Ileus, unspecified (principal); E86.0 Dehydration; E03.9 Hypothyroidism, unspecified; E78.5 Hyperlipidemia, unspecified; E66.9 Obesity, unspecified; Z68.35 Body mass index [BMI] 35.0-35.9, adult; J44.9 Chronic obstructive pulmonary disease, unspecified; F41.9 Anxiety disorder, unspecified; K57.30 Diverticulosis of large intestine without perforation or abscess without bleeding; K52.9 Noninfective gastroenteritis and colitis, unspecified; Z86.73 Personal history of transient ischemic attack (TIA), and cerebral infarction without residual deficits; Z90.710 Acquired absence of both cervix and uterus; Z90.49 Acquired absence of other specified parts of digestive tract; I10 Essential (primary) hypertension

== ENCOUNTER 2018-08-21 10:17 | Emergency (ER) | payer MEDICARE ==
[2018-08-21] MEDS ORDERED: Iohexol 350 MG/100 ML VIAL ONE (14:54)
--- NOTE | 2018-08-21 15:30 | CT ---
Date of service: 08/21/2018 PROCEDURE: CT Abdomen and Pelvis with contrast HISTORY: ABD PAIN COMPARISON: 03/24/2018 TECHNIQUE: Contrast dose: 100 mL Omnipaque 350 Radiation dose: Total exam DLP = 871.59 mGy-cm. This CT exam was performed using one or more of the following dose reduction techniques: Automated exposure control, adjustment of the mA and/or kV according to patient size, and/or use of iterative reconstruction technique. FINDINGS: LOWER THORAX: Emphysematous changes noted at the lung bases. No infiltrate or effusion. Mild cardiomegaly. LIVER: Normal size and contour. Elongated right lobe likely developmental in origin. No true hepatomegaly. Intrahepatic biliary dilatation noted unchanged in extent compared to prior examination. Nonspecific 9 mm low-density lesion in right lobe of liver unchanged from prior examination. This is seen on series 3, image 26. Nonspecific low-density lesion in lateral segment left upper lobe liver, approximately 6 mm. Again, this is unchanged. GALLBLADDER AND BILE DUCTS: Status post cholecystectomy. Dilatation of common bile duct up to 13 mm. No change from prior CT in for differences in technique of measurement. PANCREAS: Unremarkable. No gross lesion or ductal dilatation. SPLEEN: Unremarkable. ADRENALS: Unremarkable. No mass. KIDNEYS AND URETERS: Right upper pole renal cortical cyst, 1.9 cm. No change. Left lower pole parapelvic cyst versus calyceal diverticulum, 1.4 cm. Unchanged. Additional smaller cortical cysts are noted in the right kidney, again unchanged. No calculus or hydronephrosis. VASCULATURE: Unremarkable. No aortic aneurysm. BOWEL: Extensive sigmoid diverticulosis without evidence of diverticulitis. No bowel obstruction. Multiple loops of small bowel with circumferential mural thickening consistent with nonspecific enteritis. Infectious versus inflammatory etiology. APPENDIX: Not identified PERITONEUM: Minimal ascites in pelvis LYMPH NODES: Unremarkable. No enlarged lymph nodes. BLADDER: Two small right sided bladder diverticula, unchanged. Only 1 was clearly appreciable on prior examination. No mural thickening. REPRODUCTIVE: Status post hysterectomy BONES: No acute fracture. OTHER FINDINGS: None. IMPRESSION: Nonspecific enteritis involving multiple loops of small bowel, likely ileum. Sigmoid diverticulosis without evidence of diverticulitis. No bowel obstruction. Status post cholecystectomy with dilated common bile duct and intrahepatic biliary dilatation, unchanged in extent compared to the prior examination of 03/24/2018. Additional minor findings as above.
[2018-08-21 15:59] VITALS: BMI 32.5
[2018-08-21 17:15] VITALS: BP 127/79; PULSE 80; RESP 18; TEMP 98; O2SAT 99
[2018-08-22 05:10] LABS: ALB/GLOB RATIO 1.3 (1.1-1.8); ALBUMIN 3.7 g/dL (3.0-4.8); BLOOD UREA NITROGEN 7 mg/dL (7-21); CALCIUM 9.4 mg/dL (8.4-10.5); GFR NON-AFRICAN AMERICAN > 60
[2018-08-22 05:11] LABS: ALT/SGPT 18 U/L (7-56); AST/SGOT 22 U/L (14-36); HEMOGLOBIN 12.7 g/dL (12.0-16.0); LIPASE 39 U/L (23-300); MEAN CELL VOLUME 91.9 fl (80.0-105.0); MEAN CORPUSCULAR HEMOGLOBIN 29.4 pg (25.0-35.0); RBC 4.32 10^6/uL (3.5-6.1); TROPONIN I < 0.01 ng/mL; WHITE BLOOD COUNT 7.2 10^3/ul (4.5-11.0)
[2018-08-22 05:12] LABS: BASO # 0.02 K/mm3 (0.0-2.0); BASO % 0.3 % (0.0-3.0); EOS # 0.1 (0.0-0.7); EOS % 1.4 % (1.5-5.0); GRAN # 5.37 (1.4-6.5); LYMPH # 1.2 (1.2-3.4); LYMPH % 17.1 % (22.0-35.0); MEAN PLATELET VOLUME 10.7 fl (7.0-11.0); MONO # 0.4 (0.1-0.6); MONO % 6.2 % (1.0-6.0)
== END 2018-08-21 17:00 | disposition home or self-care (01) ==
LOC: ED 10:17
DX: R19.7 Diarrhea, unspecified (principal)
CPT/HCPCS: 74177; 80053; 83690; 83735; 84484; 85025; 99281; Q9967